=== PATIENT | female | born 1980 | race African-American/Black ===

== ENCOUNTER 2019-07-19 06:10 | Day surgery (SDC) | payer OTHER ==
[~2019-07-19] VITALS: Ht 167.6 cm; Wt 100.0 kg
[~2019-07-19 06:10] MED LIST: SODIUM CHLORIDE 0.9% 1,000 ML ONE
[2019-07-19] MEDS ORDERED: LIDOCAINE 2% 30 ML JELLY TP ONE (06:11)
[2019-07-19] MEDS ORDERED: BENZOCAINE 20% 50 MCG/SPRAY 57 GM TP ONE (06:11)
[2019-07-19] MEDS ORDERED: ALBUTEROL SULFATE 2.5 MG/0.5 ML NEB SOLUTION NEB ONE (06:11)
[2019-07-19] MEDS ORDERED: LIDOCAINE 4% 50 ML SOLUTION TP ONE (06:11)
[2019-07-19] MEDS ORDERED: SODIUM CHLORIDE 0.9% 1,000 ML IV ONE (06:30)
[2019-07-19] MEDS ORDERED: PIOG45TA4 PO (07:02)
[2019-07-19] MEDS ORDERED: ELDE1CAP PO (07:02)
[2019-07-19] MEDS ORDERED: MIDAZOLAM HCL 2 MG/2 ML VIAL ONE (07:43)
[2019-07-19] MEDS ORDERED: FentaNYL CITRATE-PF 100 MCG/2 ML VIAL ONE (07:43)
[2019-07-19] MEDS ORDERED: MethylPREDNISolone SOD SUCC 125 MG/2 ML VIAL ONE (08:17)
[2019-07-19] MEDS ORDERED: MethylPREDNISolone SOD SUCC 125 MG/2 ML VIAL IVP ONE (09:00)
[2019-07-19] MEDS ORDERED: MethylPREDNISolone SOD SUCC 125 MG/2 ML VIAL IVP STA (09:03)
[2019-07-19] MEDS ORDERED: PROMETH/PHENYLEPHRINE/CODEINE 5 ML ORAL.SYG PO STA (09:03)
[2019-07-19] MEDS ORDERED: OXYGEN THERAPY IH SCH (20:00)
== END 2019-07-19 10:15 | disposition home or self-care (01) ==
LOC: SURGERY 06:10
PROVIDERS: ATTEND Internal Medicine Critical Care Medicine
DX: R05 Cough (principal); R91.8 Other nonspecific abnormal finding of lung field; R91.1 Solitary pulmonary nodule; J34.89 Other specified disorders of nose and nasal sinuses; J98.8 Other specified respiratory disorders; J38.4 Edema of larynx; B37.0 Candidal stomatitis; E11.9 Type 2 diabetes mellitus without complications; I10 Essential (primary) hypertension; E78.00 Pure hypercholesterolemia, unspecified; D64.9 Anemia, unspecified; Z90.710 Acquired absence of both cervix and uterus; Z98.890 Other specified postprocedural states; Z87.891 Personal history of nicotine dependence; Z88.8 Allergy status to other drugs, medicaments and biological substances; Z88.2 Allergy status to sulfonamides; Z79.899 Other long term (current) drug therapy; Z11.59 Encounter for screening for other viral diseases
CPT/HCPCS: 31623; 31624; 71045; 87015; 87070; 87101; 87205; 87206; 87220; 88108; 88312; J2250; J2930; J3010; J7030; U0003; J2370; J7613; Z7610